=== PATIENT | female | born 1960 | race Caucasian/White ===

== ENCOUNTER 2023-08-09 12:58 | Outpatient (CLI) | payer SELFPAY ==
--- NOTE | 2023-08-09 13:26 | CT_ITS ---
WS: [id number] CT CALCIUM SCORE REASON FOR VISIT: [id number]; Coronary artery disease risk assessment COMPARISON: None TECHNIQUE: Noncontrast coronary CT in combination with quantitative analysis performed on a separate workstation were used to determine CACS (Agatston score) TOTAL EXAM DOSE: 31.67 mGy.cm ECG GATING: Prospective SCAN RANGE: Pulmonary artery bifurcation to Inferior aspect of heart COMPLICATIONS: None FINDINGS: Technical Quality/Examination Quality: Good Limitation: None OVERALL SCORES Total calcium score: 3 Total volume score: 6 mm3 Percentile: 25th-50th% ARTERY SCORES Left main coronary artery: 0 Left anterior descending artery: 0 Left circumflex artery: 3 Right coronary artery: 0 OTHER FINDINGS: Mediastinum: Normal. Thoracic aorta: Normal. Lungs: Normal. Upper Abdomen: Normal. IMPRESSION: Total calcium score 3. Patient is between the 25th and 50th percentile for age. GRADING OF CORONARY ARTERY DISEASE (BASED ON TOTAL CALCIUM SCORE) NO EVIDENCE OF CAD: 0 calcium score MINIMAL: 1-10 MILD: 11-100 MODERATE: 101-400 SEVERE:>400
== END 2023-08-09 12:59 | disposition home or self-care (01) ==
PROVIDERS: Visit Provider Family Medicine
DX: Z13.6 Encounter for screening for cardiovascular disorders (principal); Z82.49 Family history of ischemic heart disease and other diseases of the circulatory system
CPT/HCPCS: 75571